=== PATIENT | female | born 1985 | race Two or more races ===

== ENCOUNTER 2023-03-23 18:40 | Emergency (ER) | payer OTHER ==
[~2023-03-23] VITALS: Ht 160 cm; Wt 69.9 kg
[~2023-03-23 18:40] MED LIST: TOBRADEX EYE DR10 ML OP
== END 2023-03-23 21:23 | disposition home or self-care (01) ==
LOC: ER 18:40
DX: S09.90XA Unspecified injury of head, initial encounter (principal); S14.109A Unspecified injury at unspecified level of cervical spinal cord, initial encounter; V49.9XXA Car occupant (driver) (passenger) injured in unspecified traffic accident, initial encounter; Y93.89 Activity, other specified; Y92.413 State road as the place of occurrence of the external cause; Y99.9 Unspecified external cause status